=== PATIENT | male | born 1955 | race Caucasian/White ===

== ENCOUNTER 2021-08-27 17:35 | Emergency (ER) | payer OTHER ==
--- OUTSIDE RECORDS SUMMARY | 2021-08-27 17:38 | XMS REPORT | Continuity of Care Document ---
:1955 Author Organization [facility] t Address [address] [place] [address] Care Team Providers Name Role Phone Beverly Yancey MD Primary Care Physician AISSATOU Attending Clinician Unavailable NOAM LUCIO Attending Clinician Unavailable Nurse, Pob Immunization Attending Clinician Unavailable Noam Lucio DO Attending Clinician Adrian TELLO Attending Clinician Unavailable Zaida HAMILTON Attending Clinician Unavailable Lab, Fam Pob I Attending Clinician Unavailable ANENE Attending Clinician Unavailable Doctor Unassigned, Name Attending Clinician Unavailable UNKNOWN Attending Clinician Unavailable Marko SEYMOUR M. Attending Clinician Anita MENA Attending Clinician Unavailable Only, Test Attending Clinician Unavailable Gloria SOUZA Attending Clinician Unavailable Payers Payer Name Policy Type Policy Number Effective Date Expiration Date S amanda AETNA MEDICARE ADV [id number] 2019 00:00:00 AETNA HMO [id number] 2018 00:00:00 Problems Condition Condition Condition Status Onset Resolution Last Treating Co mments Source Name Details Category Date Date Treatment Clinician Date Diastasis Diastasis Disease Active 2019-06 [place] lupe recti recti 07-02 College 00:00: of 00 Medicin e No known No known Disease Metho di active active st problems problems Hospit a l Allergies, Adverse Reactions, Alerts Allergy Allergy Status Severity Reaction(s) Onset Inactive Treating Comm ents Source Name Type Date Date Clinician Penicill Propensi Active Rash Method i ins ty to 06 st adverse 00:00: Hospita reaction 00 l s to drug Penicill Propensi Active Rash [facility] ins ty to 08-31 [place] adverse 00:00: of reaction 00 Medicin s to e drug NO KNOWN Drug Active Univers ALLERGIE Class ity of S [facility] Family History Family Member Diagnosis Comments Start Date Stop Date Source Natural father No Known Problems Met [facility] Natural mother No Known Problems Met [facility] Social History Social Habit Start Date Stop Date Quantity Comments Source History [facility] Drinks History [facility] History SDFL [facility] Alcohol intake 2020-09-09 2020-09-09 Current [facility] 00:00:00 00:00:00 non-drinker of Hospital alcohol (finding) History SDFL 2020-03-11 2020-03-11 1 [facility] Frequency 00:00:00 00:00:00 Hospita l Tobacco use and 2018-08-31 2018-08-31 Smokeless tobacco [facility] exposure 00:00:00 00:00:00 non-user Hospital Sex Assigned At [birth year] [facility] 00:[facility]00 Hospital Smoking Status Start Date Stop Date Source Unknown if ever smoked [facility] Never smoker [facility] o f Medicine Medications Ordered Filled Start Stop Current Ordering Indication Dosage Frequency Signature Comments Components Source Medication Medication Date Date Medication? Clinician (SIG) Name Name RAFAEL Rose 2020-06 Yes USE Meth osbaldo Syringe 3 0-[address] mL 22 gauge 00:00: Hospit a x 1" 00 l syringe testosteron 2020-06- No INJECT 1 M ethodi e cypionate 0-26 04-[address] (DEPOTESTOT 00:00: 04:59 THE Hospi ta ERONE 00 :00 SHOULDER, l CYPIONATE) THIGH, OR 200 mg/mL BUTTOCKS injection EVERY 7 DAYS FOR 180 DAYS. RAFAEL Rose 2020- No USE 1 Meth osbaldo Syringe 3 8-07 10-[address] mL 22 gauge 00:00: 00:00 EVERY WEEK Hospita x 1" 00 :00 l syringe anastrozole 2021- No TAKE 1 Met hodi (ARIMIDEX) 4-24 04-20 TABLET(1 st 1 mg chemo 00:00: 04:59 MG) BY Hosp carie tablet 00 :00 MOUTH 1 l TIME A WEEK testosteron 2020- No 200mg Q1W Inject 1 Methodi e cypionate 10-02 10-05 mL (200 mg s t (Depo-Testo 00:00: 04:59 total) Hos marina sterone) 00 :00 into the l 200 mg/mL shoulder, injection thigh, or buttocks every 7 days for 180 days. omeprazole Yes 40mg QD Take 40 mg M ethodi (PriLOSEC) 3-[address] 40 MG 13:09: daily. Hospita capsule 37 l bisoprolol- Yes 1{tbl} QD Take 1 Me [facility] hydrochloro 3-[address] thiazide 13:09: mouth Hospita (ZIAC) 37 daily. l 5-6.25 mg per tablet tadalafiL 2021- No 20mg Q24H Take 1 Metho di (CIALIS) 20 3-15 03-11 tablet (20 s t mg tablet 00:00: 05:59 mg total) Ho spita 00 :00 by mouth l daily as needed for erectile dysfunctio n for up to 360 days. testosteron 2020- No 200mg Q1W Inject 1 Methodi e cypionate -19 04-07 mL (200 mg s t (Depo-Testo 00:00: 00:00 total) Hos marina sterone) 00 :00 into the l 200 mg/mL shoulder, injection thigh, or buttocks every 7 days for 90 days. bisoprolol- 2019-06 Yes 1{tbl} Take 1 Tab Rey hydrochloro 1-05 by mouth. Col lege thiazide 15:06: of (ZIAC) 55 Medicin 5-6.25 MG e per tablet anastrozole 2019-06 Yes Rey (ARIMIDEX) 1-03 College 1 MG tablet 00:00: of 00 Medicin e syringe 2019-06 No 22g Q1W 22 g every Met hodi with needle 0-26 08-[address] (BD 00:00: 16:31 Hospita Luer-Yamilex 00 :57 l Syringe) 3 mL 22 gauge x 1" syringe pantoprazol 2019-06 Yes [facility] e 0-17 College (PROTONIX) 00:00: of 40 MG 00 Medicin tablet e tadalafiL 2020- No 20mg Q24H Take 1 Metho di (CIALIS) 20 9-14 03-15 tablet (20 s t mg tablet 00:00: 00:00 mg total) Ho spita 00 :00 by mouth l daily as needed for erectile dysfunctio n for up to 360 days. anastrozole 2020- No 1mg Q7D Take 1 Met hodi (ARIMIDEX) 3-25 04-24 tablet (1 st 1 mg chemo 00:00: 00:00 mg total) H ospita tablet 00 :00 by mouth l once a week for 90 days. sildenafiL Yes 100mg Take 1 Meth osbaldo (VIAGRA) 3-[address] 100 MG 00:00: (100 mg Hospita tablet 00 total) by l mouth as needed for erectile dysfunctio n. needle, Yes 1{syrin Q14D 1 Syringe Me thodi disp, 18 G 8-12 ge} every 14 st 18 gauge x 00:00: (fourteen) H ospita 1 1/2" 00 days. l needle ergocalcife Yes TK 1 C PO M ethodi rol 2-[address] (VITAMIN 00:00: Hospita D2) 50,000 00 l unit capsule No known No Univers medications 1-15 ity of 12:37: [address] Immunizations Ordered Filled Immunization Date Status Comments [facility] e Immunization Name Name SARS-COV-2 COVID-19 2021-06-06 Completed Unive rsity of PFIZER VACCINE 00:00:00 [facility] SARS-COV-2 COVID-19 2020-11-01 Completed Unive rsity of PFIZER VACCINE 00:00:00 [facility] SARS-COV-2 COVID-19 2020-10-08 Completed Unive rsity of PFIZER VACCINE 00:00:00 [facility] Vital Signs Vital Name Observation Time Observation Value Comments Source Systolic blood 2020-05-02 15:04:00 138 mm[Hg] [facility] Medicine Diastolic blood 2020-05-02 15:04:00 79 mm[Hg] [facility] pressure Medicine Heart rate 2020-05-02 15:04:00 78 /min [facility] ol[facility] of Medicine Body height 2020-05-02 15:04:00 172.7 cm [facility] Body weight 2020-05-02 15:04:00 81.647 kg [facility] BMI 2020-05-02 15:04:00 27.37 kg/m2 [facility] Systolic blood 2020-05-02 15:04:00 138 mm[Hg] [facility] of pressure Medicine Diastolic blood 2020-05-02 15:04:00 79 mm[Hg] [facility] of pressure Medicine Heart rate 2020-05-02 15:04:00 78 /min [facility] of Medicine Body height 2020-05-02 15:04:00 172.7 cm [facility] Medicine Body weight 2020-05-02 15:04:00 81.647 kg [facility] BMI 2020-05-02 15:04:00 27.37 kg/m2 [facility] Procedures Procedure Date / Time Performing Clinician Source Performed SARS-COV-2 COVID-19 2021-06-06 20:35:36 Doctor Unassigned, No [facility] [place] VACCINE,0.3ML,IM Name [facility] CBC WITH PLATELET AND 2020-09-09 18:36:00 [facility] Rosa [facility] DIFFERENTIAL ESTRADIOL LEVEL 2020-09-09 18:36:00 [facility] spital TESTOSTERONE LEVEL, 2020-09-09 18:36:00 [facility] FREE AND TOTAL, MALE PSA, TOTAL AND FREE 2020-09-09 18:36:00 [facility] Plan of Care Planned Activity Planned Date Details Comments Source Future Scheduled 2021-06-12 COVID-19 VACCINE (1) Met [facility] Test 06:22:12 [code = COVID-19 VACCINE (1)] Future Scheduled 2021-06-12 Hepatitis C screening [facility] Test 06:22:12 (procedure) [code = 171147396] Future Scheduled 2021-06-12 [facility]CREENING [facility] Test 06:22:12 [code = COLONOSCOPY SCREENING] Future Scheduled 2021-06-12 SHINGLES VACCINES (#1) [facility] Test 06:22:12 [code = SHINGLES VACCINES (#1)] Future Scheduled 2021-06-12 65[facility] Test 06:22:12 VACCINE (1 of 1 - PPSV23) [code = 65+ PNEUMOCOCCAL VACCINE (1 of 1 - PPSV23)] Future Scheduled 2021-06-12 INFLUENZA VACCINE [facility] Test 06:22:12 [code = INFLUENZA VACCINE] Future Scheduled COLON CANCER [facility] ege of Test SCREENING: COLONOSCOPY Medic ine [code = COLON CANCER SCREENING: COLONOSCOPY] Future Scheduled TETANUS SHOT (ADULT) [facility] of Test [code = TETANUS SHOT Medicin e (ADULT)] Future Scheduled BMI FOLLOW UP PLAN [facility] of Test [code = BMI FOLLOW UP Medici ne PLAN] Future Scheduled HEPATITIS C SCREENING [facility] of Test [code = HEPATITIS C Medicine SCREENING] Future Scheduled HIV SCREENING [code = [facility] of Test HIV SCREENING] Medicine Future Scheduled ZOSTER VACCINE (1 of [facility] of Test 2) [code = ZOSTER Medicine VACCINE (1 of 2)] Future Scheduled [facility] [code = FLU VACCINE > Medici ne 6 MONTHS] Future Scheduled MEDICARE IPPE (WELCOME B [facility] of Test TO MEDICARE) [code = Medicin e MEDICARE IPPE (WELCOME TO MEDICARE)] Encounters Start End Encounter Admission Attending Care Care Encounter Source Date/Time Date/Time Type Type Clinicians Facility Department ID 2021-08-13 2021-08-13 [facility] [id number] 00:00:00 00:00:00 ROSA [address] 2021-06-06 2021-06-06 Outpatient R KHADIJAH [facility] [id number] Univers 14:10:00 13:54:49 ROYCE garcia [facility] 2021-06-06 2021-06-06 Imm/Inj Nurse, Adc Pob Immunization [facility] 1.2.840.114 [id number] Univers 13:54:25 13:54:49 Visit Royce Lucio 350.1.13 .10 radha [facility] 4.2.7.2.686 Shannan SHANE [id number] [address] 2021-04-22 2021-04-22 Dayan Reyez, 1.2.840.1 [id number] Methodi 00:00:00 00:00:[address] 3.430.2.7 Hospit a .3.026592 l .8 2021-04-18 2021-04-18 Refsharif Reyez, 1.2.840.1 [id number] Methodi 00:00:00 00:00:[address] 3.430.2.7 Hospit a .3.587753 l .8 2021-01-31 2021-01-31 Refsharif Reyez, 1.2.840.1 [id number] Methodi 00:00:00 00:00:[address] 3.430.2.7 Hospit a .3.205459 l .8 2020-11-01 2020-11-01 [facility] [id number] Univers 15:50:00 15:50:00 [facility] 2020-11-01 2020-11-01 [facility] [id number] Univers 13:20:00 13:20:00 ROYCE [facility] 2020-10-18 2020-10-18 Jorgesharif Horne, 1.2.840.1 [id number] Methodi 00:00:00 00:00:[address] 3.430.2.7 Hospit a .3.635954 l .8 2020-10-08 2020-10-08 [facility] [id number] Univers 16:10:00 16:10:00 [facility] 2020-10-02 2020-10-02 Orders Zaida, 1.2.840.1 [id number] Methodi 00:00:00 00:00:00 Only Jessica 27632.1.[address] 3.430.2.7 Hospit a .3.491782 l .8 2020-09-09 2020-09-09 Office Aissatou, 1.2.840.1 [id number] Methodi 13:02:48 13:17:48 Visit Rosa [address]805.1.[address] 3.430.2.7 Hospit a .3.922615 l .8 2020-09-09 2020-09-09 Travel 1.2.840.1 1.2.945.518 2561 [id number] Methodi 00:00:00 00:00:[address] 3.430.2.7 0.2.7.3.698 Ho spita .3.624105 084.8 l .8 2020-09-06 2020-09-06 Orders Zaida, 1.2.840.1 [id number] [id number] Methodi 00:00:00 00:00:00 Only Jessica 26823.1.[address] 3.430.2.7 Hospit a .3.909016 l .8 2020-08-09 2020-08-09 Orders Zaida, 1.2.840.1 [id number] 2099 [id number] Methodi 00:00:00 00:00:00 Only Jessica 73190.1.[address] 3.430.2.7 Hospit a .3.448141 l .8 2020-07-01 2020-07-01 Outpatient R [facility] [id number] -[id number] Univers 17:40:00 17:40:00 [id number] [facility] 2020-06-18 2020-06-18 Laboratory Lab, [facility] 1.2.840.114 [id number] 15:33:45 15:53:45 Only Fam Pob I Health 350.1.13.10 [place] 4.2.7.2.686 Professio [id number] nal 044 [address] One 2020-06-18 2020-06-18 Outpatient [facility] [id number] [facility] 15:40:00 15:40:00 [id number] [facility] 2020-06-18 2020-06-18 Outpatient R KAMLESH, [facility] [id number] Univers 15:40:00 15:40:00 BREA garcia [facility] 2020-06-18 2020-06-18 Outpatient R KAMLESH [facility] [id number] Univers 15:40:00 15:40:00 BREA alex [facility] 2020-06-18 2020-06-18 Letter Doctor BEVERLY 1.2.840.114 [id number] 00:00:00 00:00:00 (Out) Unassigned, YVETTE 350.1.13.10 [facility] 4.2.7.2.686 [id number] 2020-05-24 2020-05-24 Laboratory Lab, [facility] 1.2.840.114 [id number] 10:04:32 10:24:32 Only Fam Pob I Health 350.1.13.10 [place] 4.2.7.2.686 Professio [id number] nal 044 Office [address] [facility] 2020-05-24 2020-05-24 Outpatient R [facility] [id number] -[id number] Univers 10:00:00 10:00:00 [id number] [facility] 2020-05-24 2020-05-24 Outpatient R UNKNOWN, [facility] [id number] Univers 10:00:00 10:00:00 ATTENDING [facility] 2020-05-24 2020-05-24 Letter Doctor BEVERLY 1.2.840.114 [id number] 00:00:00 00:00:00 (Out) Unassigned, YVETTE 350.1.13.10 [place] 4.2.7.2.686 [id number] 044 2020-05-02 2020-05-02 Office Marko, BCAdrian 1.2.840.114 [id number] 08:49:00 14:36:14 Visit Jose Kirkland AMBULATOR 350.1.13.21 Y 0.2.7.2.686 [id number] 2020-05-02 2020-05-02 Office Marko, KAITLIN 1.2.840.[id number] [place] [address] 08:49:00 14:36:14 Visit Jose Kirkland AMBULATOR 350.1.13.21 College Y 0.2.7.2.686 [id number] Medi makenna 815 e 2020-04-27 2020-04-27 Telephone BEVERLY Howard 1.2.981.438 [id number] 00:00:00 00:00:00 Claudia CRAWFORD 350.1.13.10 [facility] 4.2.7.2.686 [id number] 019 2020-04-26 2020-04-26 Laboratory Only, [facility] 1.2.840.114 [id number] 13:03:53 13:18:53 Only Test [place] 350.1.13.10 [place] 4.2.7.2.686 [place] [id number] 2020-04-26 2020-04-26 Outpatient R LIBBY, [facility] [id number] Univers 13:00:00 13:00:00 CHIDI garcia [facility] 2020-04-26 2020-04-26 Orders Doctor BEVERLY 1.2.840.114 [id number] 00:00:00 00:00:00 Only Unassigned, YVETTE 350.1.13.10 [facility] 4.2.7.2.686 [id number] Results Test Description Test Time Test Comments Results Result Comments Source Testosterone level, free and total, male 2020-09-14 00:07:00 Test Item Value Reference Range Interpretation Comme nts Testosterone (test code = >1500 264-916 H Ad ult male reference interval 2986-8) is based on a p opulation ofhealthy nonob estela males (BMI <30) between 19 and 39 years old.addie Willoughby t.al. JCEM 2017,102;1161-1 173. PMID: 68951849. Testosterone, free (test 39.7 pg/mL 6.6-18.1 H code = 2991-8) SUKHDEEP (test code = SUKHDEEP) Performed at: 01 - [facility] [id number] Director: Graeme Stallings MD, Phone: [phone] at: 02 - [facility] [id number] Director: Ana Brennan MD, Phone: [phone] Lab Interpretation (test Abnormal code = 69841-1) [facility] and [id number] 14:03:00 Test Item Value Reference Range Interpretation Comments PSA (test code 1.8 ng/mL 0.0-4.0 Marissa ECLIA = 2857-1) methodology.Acc ording to the [employer] [employer], Se rum PSA shoulddecrease and remain at undet ectable levels after radicalprostate ctomy. The AUA defines biochemical rec urrence as an initialPS A value 0.2 ng/mL or gr eater followed by a subsequent confirmatoryPSA value 0.2 ng/mL or greater.Values obtained with different assay methods or kits cannot be usedinterchange ably. Results cannot be interpreted as absolute eviden ceof the presence or absence of brooklynn gnant disease. PSA, free (test 0.46 ng/mL N/A Marissa ECLIA code = 76878-7) methodology. PSA, free 25.6 % The table below lists percent (test the probabilit y of code = 03744-7) prostate can cer formen with non-suspic ious CONNIE results and total PSA between4 an d 10 ng/mL, by patie nt age (Catalona et al , ROBERTA 1998,279:1542). % Ketan e PSA 50-64 yr 65-75 yr 0.00-10.00% 56% 55% 10.01-15.00% 24% 35% 15.01-20.00% 17% 23% 20.01-25.00% 10% 20% >25.00% 5% 9%Plea se note: Zia et al did not make sp ecific recommendations regarding the u se of perc ent free PSA for an y other population of men. SUKHDEEP (test code Performed at: 01 = SUKHDEEP) - [facility] [id number] [place], [place] [id number] Director: Graeme Stallings MD, Phone: [phone] [facility] with platelet and [id number] 14:03:00 Test Item Value Reference Range Interpretation Comments WBC (test code = See_Comment [Automated 9009-2) message] The system which generated this result transmitted reference range : 3.4 - 10.8 x10E3/uL. The reference range was not used to interpret this result as normal/abnormal . RBC (test code = See_Comment H [Automated 789-8) message] The system which generated this result transmitted reference range : 4.14 - 5.80 x10E6/uL. The reference range was not used to interpret this result as normal/abnormal . HGB (test code = 16.6 g/dL 13.0-17.7 718-7) HCT (test code = 50.9 % 37.5-51.0 4544-3) MCV (test code = 83 fL 79-97 787-2) MCH (test code = 26.9 pg 26.6-33.0 785-6) MCHC (test code = 32.6 g/dL 31.5-35.7 786-4) RDW (test code = 16.3 % 11.6-15.4 H 788-0) Platelet count (test See_Comment [Autom ated code = 777-3) message] The system which generated this result transmitted reference range : 150 - 450 x10E3/uL. The reference range was not used to interpret this result as normal/abnormal . Neutrophils (test 53 % Not Estab. code = 770-8) Lymphocytes (test 34 % Not Estab. code = 736-9) Monocytes (test code 10 % Not Estab. = 5905-5) Eosinophils (test 2 % Not Estab. code = 713-8) Basophils (test code 1 % Not Estab. = 706-2) Neutrophils, absolute See_Comment [Auto mated (test code = 751-8) message] The system which generated this result transmitted reference range : 1.4 - 7.0 x10E3/uL. The reference range was not used to interpret this result as normal/abnormal . Lymphocytes, absolute See_Comment [Auto mated (test code = 731-0) message] The system which generated this result transmitted reference range : 0.7 - 3.1 x10E3/uL. The reference range was not used to interpret this result as normal/abnormal . Monocytes, absolute See_Comment [Automa joe (test code = 742-7) message] The system which generated this result transmitted reference range : 0.1 - 0.9 x10E3/uL. The reference range was not used to interpret this result as normal/abnormal . Eosinophils, absolute See_Comment [Auto mated (test code = 711-2) message] The system which generated this result transmitted reference range : 0.0 - 0.4 x10E3/uL. The reference range was not used to interpret this result as normal/abnormal . Basophils, absolute See_Comment [Automa joe (test code = 704-7) message] The system which generated this result transmitted reference range : 0.0 - 0.2 x10E3/uL. The reference range was not used to interpret this result as normal/abnormal . Immature granulocytes 0 % Not Estab. (test code = 97020-9) Immature grans (abs) See_Comment [Autom ated (test code = 64504-4) messag e] The system which generated this result transmitted reference range : 0.0 - 0.1 x10E3/uL. The reference range was not used to interpret this result as normal/abnormal . SUKHDEEP (test code = SUKHDEEP) Performed at: 01 - [address] [id number] Director: Graeme Stallings MD, Phone: [phone] Lab Interpretation Abnormal (test code = 04099-3) [facility] [id number] 14:03:00 Test Item Value Reference Range Interpretation Comments Estradiol (test 18.2 pg/mL 7.6-42.6 Marissa ECLIA code = 2243-4) methodology SUKHDEEP (test code = Performed at: SUKHDEEP) - [facility] [id number] Director: Graeme Stallings MD, Phone: [phone] [facility]
[2021-08-27] MEDS ORDERED: DICYCLOMINE HCL 20 MG/2 ML AMP IM ONE (18:51)
[2021-08-27] MEDS ORDERED: ONDANSETRON 4 MG/2 ML VIAL ONE (18:51)
[2021-08-27] MEDS ORDERED: NA CHLORIDE 0.9% 0 ML ONE (18:52)
[2021-08-27] MEDS ORDERED: FAMOTIDINE 20 MG/2 ML VIAL IV ONE (18:52)
[2021-08-27 18:54] LABS: Hematocrit 50.1 % (39.6-49.0); Lymphocytes % 11.2 % (15.3-44.8); MPV 8.1 fL (7.6-11.3); RBC Red Blood Cell Count 6.37 M/uL (4.33-5.43)
[2021-08-27 18:55] LABS: Protime INR 1.15
[2021-08-27] MEDS ORDERED: NA CHLORIDE 0.9% 1,000 ML ONE (18:58)
--- NOTE | 2021-08-27 19:10 | RAD REPORT ---
EXAM DESCRIPTION: RAD - Chest Single View - 08/27/2021 7:04 pm CLINICAL HISTORY: weakness Chest pain. COMPARISON: Chest Pa And Lat (2 Views) dated 10/06/2018; Chest Pa And Lat (2 Views) dated 01/20/2018 FINDINGS: Portable technique limits examination quality. The lungs are grossly clear. The heart is upper limit of normal in size. No displaced fractures. IMPRESSION: No acute intrathoracic process suspected.
[2021-08-27 19:11] LABS: Albumin 3.6 g/dL (3.4-5.0); Bilirubin Total 0.5 mg/dL (0.2-1.0); Magnesium 2.2 mg/dL (1.8-2.4); Potassium 3.4 mmol/L (3.5-5.1)
[2021-08-27 19:16] LABS: Bilirubin Direct 0.1 mg/dL (0-0.2); Protein, Total 7.6 g/dL (6.4-8.2); Troponin High Sensitivity 6.3 pg/mL (<58.9)
[2021-08-27 20:18] LABS: SARS-COV-2 RT PCR NEGATIVE (NEGATIVE)
--- NOTE | 2021-08-27 20:40 | RAD REPORT ---
EXAM DESCRIPTION: CTAbdomen Pelvis W Contrast - 08/27/2021 8:20 pm CLINICAL HISTORY: Abdominal pain. ABD PAIN COMPARISON: No comparisons TECHNIQUE: Biphasic CT imaging of the abdomen and pelvis was performed with 100 ml non-ionic IV cont rast. All CT scans are performed using dose optimization technique as appropriate and may include automated exposure control or mA/KV adjustment according to patient size. FINDINGS: The lung bases are clear.The stomach is mildly fluid distended with fluid in the distal es ophagus. The liver contains a 15 mm cyst. Spleen, pancreas, adrenal glands and kidneys are within normal limit s. No bowel obstruction, free air, free fluid or abscess. Mild sigmoid diverticulosis without diverticul itis. The appendix is normal. No evidence of significant lymphadenopathy. No suspicious bony findings. IMPRESSION: No acute intra-abdominal or pelvic finding.
[2021-08-27] MEDS ORDERED: DIPHENOX/ATROP SULF 1 TAB PO ONE (21:12)
[2021-08-27] MEDS ORDERED: POTASSIUM 25 MEQ EFFERV TAB ONE (21:12)
--- NOTE | 2021-08-27 21:24 | EDPHYS ---
Physician Documentation [facility] Name: Liban Tracy Jr Age: 66 yrs Sex: Male : 1955 Arrival Date: 08/27/2021 Time: 17:37 Bed 14 Private MD: Tiffani Lu ED Physician Deuce Hawk HPI: 08/27 18:20 This 66 yrs old Male presents to ER via Wheelchair with complaints of Weakness, cp Abdominal Pain. 18:20 The patient presents to the emergency department with nausea, that is mild, vomiting, cp that is intermittent, diarrhea, that is continuous. 18:20 Onset: The symptoms/episode began/occurred this past weekend. cp 18:20 Possible causes: unknown. Associated signs and symptoms: Pertinent positives: abdominal cp pain, anorexia, Pertinent negatives: constipation, fever, GI bleeding. Severity of symptoms: in the emergency department the symptoms are unchanged despite home interventions. 18:20 Patient reports becoming weak today and passing out briefly after getting up out of tub.cp Historical: - PMHx: 21:48 None; tk1 - Immunization history:: Adult Immunizations up to date. - Social history:: Smoking status: Patient denies any tobacco usage or history of. ROS: 18:30 Constitutional: Positive for body aches, poor PO intake, Negative for fever. cp 18:30 Eyes: Negative for injury, pain, redness, and discharge. cp 18:30 ENT: Negative for drainage from ear(s), ear pain, sore throat, difficulty swallowing, difficulty handling secretions. 18:30 Cardiovascular: Negative for chest pain, edema, palpitations. 18:30 Respiratory: Negative for cough, shortness of breath, wheezing. 18:30 Abdomen/GI: Positive for abdominal pain, nausea, diarrhea, anorexia, Negative for constipation, hematemesis, black/tarry stool, rectal bleeding. 18:30 Neuro: Positive for syncope, weakness, Negative for altered mental status, headache. 18:30 All other systems are negative. Exam: 18:33 Constitutional: The patient appears in no acute distress, alert, awake, cp non-diaphoretic, non-toxic, well developed, well nourished. 18:33 Head/Face: Normocephalic, atraumatic. cp 18:33 Eyes: Periorbital structures: appear normal, Pupils: equal, round, and reactive to light and accomodation, Extraocular movements: intact throughout, Conjunctiva: normal, no exudate, no injection, Sclera: no appreciated abnormality, Lids and lashes: appear normal, bilaterally. 18:33 ENT: External ear(s): are unremarkable, Nose: is normal, Mouth: Lips: moist, Oral mucosa: pink and intact, moist, Posterior pharynx: Airway: no evidence of obstruction, patent, erythema, is not appreciated, exudate, is not appreciated. 18:33 Neck: ROM/movement: is normal, is supple, without pain, no range of motions limitations. 18:33 Chest/axilla: Inspection: normal, Palpation: is normal, no crepitus, no tenderness. 18:33 Cardiovascular: Rate: normal, Rhythm: regular, Edema: is not appreciated, JVD: is not appreciated. 18:33 Respiratory: the patient does not display signs of respiratory distress, Respirations: normal, no use of accessory muscles, no retractions, labored breathing, is not present, Breath sounds: are clear throughout, no decreased breath sounds, no stridor, no wheezing. 18:33 Abdomen/GI: Inspection: abdomen appears normal, Bowel sounds: active, all quadrants, Palpation: soft, in all quadrants, mild abdominal tenderness, in the abdomen diffusely, rebound tenderness, is not appreciated, involuntary guarding, is not appreciated. 18:33 Back: pain, is absent, ROM is normal. 18:33 Neuro: Orientation: to person, place \\T\\ time. Mentation: is normal, Motor: moves all fours, strength is normal, Sensation: is normal. 19:40 ECG was reviewed by the Attending Physician. cp Vital Signs: 17:50 BP 123 / 85; Pulse 99; Resp 20 S; Temp 96.8; Pulse Ox 93% on R/A; Weight 81.19 kg (R); jg9 Height 5 ft. 8 in. (172.72 cm) (R); 20:00 BP 113 / 77 LA Supine (auto/reg); Pulse 71 MON; Resp 18; Temp 97(O); Pulse Ox 97% on tk1 R/A; Pain 0/10; 21:00 BP 121 / 87 LA Supine (auto/reg); Pulse 72 MON; Resp 16 S; Temp 97.8(O); Pulse Ox 100% tk1 on R/A; Pain 0/10; 17:50 Body Mass Index 27.22 (81.19 kg, 172.72 cm) jg9 MDM: 17:54 Patient medically screened. cp 19:00 Differential diagnosis: gastritis, diverticulitis, viral gastroenteritis, cp gastroenteritis, dehydration, electrolyte abnormality. 21:22 Data reviewed: vital signs, nurses notes, lab test result(s), EKG, radiologic studies, cp CT scan, plain films. 21:22 Test interpretation: by ED physician or midlevel provider: ECG, plain radiologic cp studies. Counseling: I had a detailed discussion with the patient and/or guardian regarding: the historical points, exam findings, and any diagnostic results supporting the discharge/admit diagnosis, lab results, radiology results, to return to the emergency department if symptoms worsen or persist or if there are any questions or concerns that arise at home. 21:23 ED course: VSS. Nausea markedly improved. Will discharge to home for continued cp monitoring. 08/27 18:12 Order name: Basic Metabolic Panel cp 08/27 18:12 Order name: CBC with Diff cp 08/27 18:12 Order name: LFT's cp 08/27 18:12 Order name: Magnesium cp 08/27 18:12 Order name: NT PRO-BNP cp 08/27 18:12 Order name: PT-INR; Complete Time: 19:18 cp 08/27 18:12 Order name: Troponin HS; Complete Time: 19:18 cp 08/27 18:12 Order name: COVID-19/FLU A+B (Document "Date of Onset" if Symptomatic); Complete Time: cp 20:45 08/27 20:45 Interpretation: Reviewed. cp 08/27 18:12 Order name: Lipase; Complete Time: 19:18 cp 08/27 18:13 Order name: Basic Metabolic Panel; Complete Time: 19:18 EDMS 03 20:45 Interpretation: Normal except: NA 135; K 3.4; CL 108; GLUC 137; BUN 22; CRE 1.42; GFR cp 50. 08/27 18:12 Order name: Orthostatics cp 08/27 18:12 Order name: XRAY Chest (1 view); Complete Time: 19:18 cp 08/27 18:12 Order name: EKG; Complete Time: 18:14 cp 08/27 18:12 Order name: Cardiac monitoring; Complete Time: 19:03 cp 08/27 18:12 Order name: EKG - Nurse/Tech; Complete Time: 19:29 cp 08/27 18:13 Order name: CBC with Automated Diff; Complete Time: 19:18 EDMS 08/27 18:13 Order name: Liver (Hepatic) Function; Complete Time: 19:18 EDMS 08/27 18:13 Order name: Magnesium; Complete Time: 19:18 EDMS 08/27 18:13 Order name: NT PRO-BNP; Complete Time: 19:18 EDMS 08/27 19:18 Order name: CT Abd/Pelvis - IV Contrast Only; Complete Time: 20:45 cp 08/27 18:12 Order name: IV Saline Lock; Complete Time: 19:03 cp 08/27 18:12 Order name: Labs collected and sent; Complete Time: 19:03 cp 08/27 18:12 Order name: O2 Per Protocol; Complete Time: 19:03 cp 08/27 18:12 Order name: O2 Sat Monitoring; Complete Time: 19:03 cp EC:40 Rate is 76 beats/min. Rhythm is regular. MT interval is normal. QRS interval is normal. cp QT interval is normal. Interpreted by me. Reviewed by me. Administered Medications: 19:02 Drug: NS 0.9% 1000 ml Route: IV; Rate: 500 bolus; Site: right antecubital; ab2 19:02 Drug: Zofran (Ondansetron) 4 mg Route: IVP; Site: right antecubital; ab2 19:31 Follow up: Response: No adverse reaction tk1 19:02 Drug: Bentyl (dicyclomine) 20 mg Route: IM; Site: right ventrogluteal; ab2 19:30 Follow up: Response: No adverse reaction; Other tk1 19:02 Drug: Pepcid (famotidine) 20 mg Route: IVP; Site: right antecubital; ab2 19:30 Follow up: Response: No adverse reaction tk1 20:20 Drug: Potassium Effervescent Tablet 50 mEq Route: PO; tk1 22:03 Follow up: Response: No adverse reaction tk1 20:20 Drug: LoMOTIL (diphenoxylate-atropine) 2 tabs Route: PO; tk1 22:02 Follow up: Response: No adverse reaction; Other tk1 Disposition Summary: 08/27/21 21:23 Discharge Ordered Location: Home cp Problem: new cp Symptoms: have improved cp Condition: Stable cp Diagnosis - Dehydration cp - Diarrhea, unspecified cp Followup: cp - With: Private Physician - When: 1 - 2 days - Reason: Recheck today's complaints Discharge Instructions: - Discharge Summary Sheet cp - Food Choices to Help Relieve Diarrhea, Adult cp - Dehydration, Adult cp - Diarrhea, Adult cp Forms: - Medication Reconciliation Form cp - Thank You Letter cp - Antibiotic Education cp - Prescription Opioid Use cp Prescriptions: - Zofran 4 mg Oral Tablet - take 1 tablet by ORAL route every 12 hours As needed; 20 tablet; Refills: 0, cp Product Selection Permitted - Lomotil 2.5-0.025 mg Oral Tablet - take 1 tablet by ORAL route every 6 hours As needed; 20 tablet; Refills: 0, cp Product Selection Permitted Signatures: Dispatcher [employer] EDMS Shankar Castrejon PA PA cp Gilmore, Jennifer, RN RN jg9 Angélica Salzaar tk1 Mckay Padilla ab2
--- NOTE | 2021-08-27 21:24 | ER ---
Nurse's Notes [facility] Name: Liban Tracy Jr Age: 66 yrs Sex: Male : 1955 Arrival Date: 08/27/2021 Time: 17:37 Bed 14 Private MD: Tiffani Lu Diagnosis: Dehydration;Diarrhea, unspecified Presentation: 08/27 17:50 Chief complaint: Spouse and/or significant other states: He passed out in the tub and jg9 then again in the hallway, prior to that happening he kept saying that he just didn't feel well, he has been having diarrhea and not eating/drinking. Coronavirus screen: Vaccine status: Patient reports receiving the 2nd dose of the covid vaccine. Pfizer booster. Ebola Screen: Patient negative for fever greater than or equal to 101.5 degrees Fahrenheit, and additional compatible Ebola Virus Disease symptoms Patient denies exposure to infectious person. Patient denies travel to an Ebola-affected area in the 21 days before illness onset. Initial Sepsis Screen: Does the patient meet any 2 criteria? No. Patient's initial sepsis screen is negative. Does the patient have a suspected source of infection? No. Patient's initial sepsis screen is negative. Risk Assessment: Do you want to hurt yourself or someone else? Patient reports no desire to harm self or others. Onset of symptoms was August 27, 2021. 17:50 Method Of Arrival: Wheelchair jg9 17:50 Acuity: AMEENA 3 jg9 Triage Assessment: 17:57 General: Appears uncomfortable, Behavior is cooperative, flat. Pain: Complains of pain jg9 in body aches. GI: Reports diarrhea, nausea. Historical: - PMHx: 21:48 None; tk1 - Immunization history:: Adult Immunizations up to date. - Social history:: Smoking status: Patient denies any tobacco usage or history of. Screenin:58 Abuse screen: Denies threats or abuse. Denies injuries from another. Nutritional jg9 screening: not eating for several days. Tuberculosis screening: No symptoms or risk factors identified. Fall Risk Fall in past 12 months (25 points). Assessment: 17:59 GI: Bowel sounds present X 4 quads. Abd is soft and non tender X 4 quads. jg9 19:03 General: Appears in no apparent distress. comfortable, Behavior is calm, cooperative, ab2 appropriate for age. Pain: Complains of pain in abdomen Pain currently is 10 out of 10 on a pain scale. Neuro: Level of Consciousness is awake, alert, obeys commands, Oriented to person, place, time, situation, Appropriate for age Cell Phone Repair Technician are equal bilaterally Moves all extremities. Gait is steady, Speech is normal, Facial symmetry appears normal. Cardiovascular: Denies chest pain, shortness of breath, Heart tones S1 S2 present Patient's skin is warm and dry. Rhythm is sinus rhythm. Respiratory: Airway is patent Respiratory effort is even, unlabored, Respiratory pattern is regular, symmetrical. GI: Abdomen is round non-distended, Bowel sounds present X 4 quads. Abdomen is tender to palpation X 4 quads. Reports diarrhea. : No deficits noted. No signs and/or symptoms were reported regarding the genitourinary system. EENT: No deficits noted. No signs and/or symptoms were reported regarding the EENT system. Derm: Skin is intact, is healthy with good turgor, Skin is pink, warm \\T\\ dry. 19:25 General: Appears in no apparent distress. comfortable, well groomed, well developed, tk1 well nourished, Behavior is calm, cooperative, appropriate for age. Pain: Denies pain. Neuro: Level of Consciousness is awake, alert, obeys commands, Oriented to person, place, time, situation, Appropriate for age Cell Phone Repair Technician are equal bilaterally Moves all extremities. Speech is normal, Facial symmetry appears normal. Cardiovascular: Denies Capillary refill < 3 seconds is brisk in bilateral fingers Patient's skin is warm and dry. Respiratory: Airway is patent Respiratory effort is even, unlabored, Respiratory pattern is regular, symmetrical. GI: Abdomen is round non-distended, Last BM was August 27, 2021. Bowel sounds present X 4 quads. Abd is soft X 4 quads. : No deficits noted. No signs and/or symptoms were reported regarding the genitourinary system. EENT: No deficits noted. No signs and/or symptoms were reported regarding the EENT system. Derm: Skin is intact, is healthy with good turgor, Skin is pink, warm \\T\\ dry. Musculoskeletal: No deficits noted. No signs and/or symptoms reported regarding the musculoskeletal system. 19:31 Reassessment: EKG in progress per Tech. Samantha tk1 20:17 Reassessment: Patient to radiology via stretcher for CT with tech. tk1 20:25 Reassessment: Patient returned from CT. Tolerated well. tk1 20:25 Reassessment: No changes from previously documented assessment. Patient and/or family tk1 updated on plan of care and expected duration. Pain level reassessed. Patient is alert, oriented x 3, equal unlabored respirations, skin warm/dry/pink. Patient denies pain at this time. 21:48 Reassessment: D/C per MD order. Discharge/Prescription instructions given to patient tk1 and . Verbalized understanding. Vital Signs: 17:50 BP 123 / 85; Pulse 99; Resp 20 S; Temp 96.8; Pulse Ox 93% on R/A; Weight 81.19 kg (R); jg9 Height 5 ft. 8 in. (172.72 cm) (R); 20:00 BP 113 / 77 LA Supine (auto/reg); Pulse 71 MON; Resp 18; Temp 97(O); Pulse Ox 97% on tk1 R/A; Pain 0/10; 21:00 BP 121 / 87 LA Supine (auto/reg); Pulse 72 MON; Resp 16 S; Temp 97.8(O); Pulse Ox 100% tk1 on R/A; Pain 0/10; 17:50 Body Mass Index 27.22 (81.19 kg, 172.72 cm) jg9 ED Course: 17:37 Patient arrived in ED. ds1 17:37 Tiffani Lu is Private Physician. ds1 17:51 Shankar Castrejon PA is PHCP. cp 17:51 Deuce Hawk MD is Attending Physician. cp 17:57 Mckay Padilla is Primary Nurse. ab2 17:57 Triage completed. jg9 17:58 Arm band placed on right wrist. jg9 17:58 Patient has correct armband on for positive identification. Bed in low position. Call j9 light in reach. Side rails up X 1. 19:01 Magnesium Sent. ab2 19:02 NT PRO-BNP Sent. ab2 19:02 CBC with Automated Diff Sent. ab2 19:02 Liver (Hepatic) Function Sent. ab2 19:02 Basic Metabolic Panel Sent. ab2 19:02 Lipase Sent. ab2 19:02 COVID-19/FLU A+B (Document "Date of Onset" if Symptomatic) Sent. ab2 19:03 Basic Metabolic Panel Sent. ab2 19:03 CBC with Diff Sent. ab2 19:03 LFT's Sent. ab2 19:03 Magnesium Sent. ab2 19:03 NT PRO-BNP Sent. ab2 19:03 Troponin HS Sent. ab2 19:04 XRAY Chest (1 view) In Process Unspecified. EDMS 19:04 No provider procedures requiring assistance completed. Inserted saline lock: 20 gauge ab2 in right antecubital area, using aseptic technique. Blood collected. 20:[address] Scan. tk1 20:00 CT Abd/Pelvis - IV Contrast Only In Process Unspecified. tk1 20:00 Patient has correct armband on for positive identification. Bed in low position. Call tk1 light in reach. Side rails up X2. 20:00 IV is patent, is intact, with fluids infusing freely. tk1 21:00 IV discontinued, intact, bleeding controlled, No redness/swelling at site. Pressure tk1 dressing applied. Administered Medications: 19:02 Drug: NS 0.9% 1000 ml Route: IV; Rate: 500 bolus; Site: right antecubital; ab2 19:02 Drug: Zofran (Ondansetron) 4 mg Route: IVP; Site: right antecubital; ab2 19:31 Follow up: Response: No adverse reaction tk1 19:02 Drug: Bentyl (dicyclomine) 20 mg Route: IM; Site: right ventrogluteal; ab2 19:30 Follow up: Response: No adverse reaction; Other tk1 19:02 Drug: Pepcid (famotidine) 20 mg Route: IVP; Site: right antecubital; ab2 19:30 Follow up: Response: No adverse reaction tk1 20:20 Drug: Potassium Effervescent Tablet 50 mEq Route: PO; tk1 22:03 Follow up: Response: No adverse reaction tk1 20:20 Drug: LoMOTIL (diphenoxylate-atropine) 2 tabs Route: PO; tk1 22:02 Follow up: Response: No adverse reaction; Other tk1 Outcome: 21:00 Discharged to home ambulatory, with family. tk1 21:00 Condition: stable 21:00 Discharge instructions given to patient, family, Instructed on discharge instructions, follow up and referral plans. medication usage, Demonstrated understanding of instructions, follow-up care, medications. 21:23 Discharge ordered by MD. see 22:03 Patient left the ED. tk1 Signatures: Dispatcher [employer] [facility] Malu Haq ds1 Shankar Castrejon PA PA cp Gilmore, Jennifer RN RN jg9 Angélica Salazar tk1 Mckay Padilla2 Corrections: (The following items were deleted from the chart) 20:24 20:20 In radiology for Abdomen Pelvis W [email or web address]. [facility] tk1
[2021-08-27 22:48] VITALS: BP 121/87; TEMP 97.8; O2SAT 100
== END 2021-08-27 22:03 | disposition home or self-care (01) ==
LOC: ER 17:35
DX: E86.0 Dehydration (principal); R19.7 Diarrhea, unspecified; Z20.822 Contact with and (suspected) exposure to COVID-19
CPT/HCPCS: 93005; 85025; 80048; 36415; 83735; 85610; 80076; 84484; 83690; 83880; 0240U; 74177; 71045; 96375; 96372; 96374; 99284; Q9967; J0500; J7030; J2405; J7040